=== PATIENT | male | born 1950 | race Caucasian/White ===

== ENCOUNTER → 2018-02-20 | Outpatient (CLI) | payer MEDICARE, OTHER ==
[~2018-02-20] MED LIST: HYDCHL50; METO25ER; ZOLP10
== END ==
LOC: PLD 08:29 → LAB SHORT 08:29
DX: D48.5 Neoplasm of uncertain behavior of skin (principal)
CPT/HCPCS: 88305

== ENCOUNTER → 2019-02-28 | Outpatient (CLI) | payer MEDICARE, OTHER | END | disposition home or self-care (01) | LOC: LAB SHORT 14:54 → PLD 14:54 | DX: D23.39 Other benign neoplasm of skin of other parts of face (principal) | CPT/HCPCS: 88305 ==

== ENCOUNTER → 2019-11-29 | Outpatient (CLI) | payer MEDICARE, OTHER ==
[2019-11-29 13:41] LABS: BASOPHILS ABSOLUTE AUTO 0.05 K/mm3 (0.00-0.23); BASOPHILS PERCENT AUTO 1 % (0-2); EOSINOPHILS ABSOLUTE AUTO 0.18 K/mm3 (0.00-0.68); EOSINOPHILS PERCENT AUTO 4 % (0-6); Hematocrit 45.1 % (37.0-53.0); Hemoglobin 15.6 g/dL (13.5-17.5); IMMATURE GRAN ABSOLUTE AUTO 0.02 K/mm3 (0.00-0.10); IMMATURE GRAN PERCENT AUTO 0 % (0-1); LYMPHOCYTES ABSOLUTE AUTO 1.14 K/mm3 (0.84-5.20); LYMPHOCYTES PERCENT AUTO 23 % (21-46); MONOCYTES ABSOLUTE AUTO 0.47 K/mm3 (0.16-1.47); MONOCYTES PERCENT AUTO 9 % (4-13); Mean Corpuscular HGB 31.8 pg (26.0-34.0); Mean Corpuscular HGB Conc 34.6 g/dL (31.5-36.5); Mean Corpuscular Volume 92 fL (80-100); Mean Platelet Volume 9.7 fL (9.1-12.4); NEUTROPHILS ABSOLUTE AUTO 3.21 K/mm3 (1.96-9.15); NEUTROPHILS PERCENT AUTO 63 % (41-73); Platelet Count 239 K/mm3 (150-400); RDW Coefficient Variation 12.1 % (11.7-14.2); RDW Standard Deviation 41.1 fL (35.1-46.3); White Blood Cell Count 5.07 K/mm3 (4.00-11.30)
[2019-11-29 13:56] LABS: Alanine Aminotransfer (ALT/SGP 28 U/L (12-78); Albumin, Blood 4.2 g/dL (3.4-5.0); Albumin/Globulin Ratio 1.1 (0.8-1.8); Alk Phos 44 U/L (40-126); Anion Gap 9 mmol/L (6-16); Aspartate Aminotrans (AST/SGOT 26 U/L (12-37); Bilirubin, Total 0.6 mg/dL (0.1-1.0); Blood Urea Nitrogen 13 mg/dL (8-24); Bun/Creatinine Ratio 11.9 (12.0-20.0); CO2, Blood 29 mmol/L (21-32); Chloride, Blood 96 mmol/L (98-108); Creatinine, Blood 1.09 mg/dL (0.60-1.20); Globulin, Blood 3.7 g/dL (2.2-4.0); Glomerular Filtration Rate >60 (60-); Glucose, Blood 114 mg/dL (70-99); Potassium, Blood 4.6 mmol/L (3.5-5.5); Sodium, Blood 134 mmol/L (136-145); Total Protein, Blood 7.9 g/dL (6.4-8.2)
== END ==
LOC: LAB EV 13:34 → LAB SHORT 13:34
PROVIDERS: Nurse Practitioner
DX: R42 Dizziness and giddiness (principal)
CPT/HCPCS: 80053; 85025

== ENCOUNTER → 2020-01-14 | Outpatient (CLI) | payer MEDICARE, OTHER | END | disposition home or self-care (01) | LOC: LAB SHORT 13:09 → PLD 13:09 | DX: D48.5 Neoplasm of uncertain behavior of skin (principal) | CPT/HCPCS: 88305 ==

== ENCOUNTER 2020-04-13 10:14 | Day surgery (SDC) | payer MEDICARE, OTHER ==
[~2020-04-13] VITALS: Ht 182.9 cm; Wt 77.6 kg
[~2020-04-13 10:14] MED LIST changes: +Cialis20 MG PO; +HYDCHL12.5 PO; +Halobetasol Pro15 GM TOP; +LIDO700A20 TOP; +METO50ER PO; +Nexium40 MG PO; +OMEP20ER PO; +ZOLP10 PO
[2020-04-13] MEDS ORDERED: Avapro150 MG (10:40)
== END 2020-04-13 12:13 | disposition home or self-care (01) ==
LOC: ORSCSDS 10:14
PROVIDERS: Internal Medicine Gastroenterology
PROC: 0D5P8ZZ Destruction of Rectum, Via Natural or Artificial Opening Endoscopic (ICD-10-PCS; principal; 2020-04-13 11:30)
PROC: 0DBP8ZX Excision of Rectum, Via Natural or Artificial Opening Endoscopic, Diagnostic (ICD-10-PCS; principal; 2020-04-13 11:30)
DX: K92.1 Melena (principal); K63.5 Polyp of colon; K57.30 Diverticulosis of large intestine without perforation or abscess without bleeding; K62.7 Radiation proctitis; K64.8 Other hemorrhoids; Z86.010 Personal history of colon polyps; Z86.19 Personal history of other infectious and parasitic diseases; K21.9 Gastro-esophageal reflux disease without esophagitis; I10 Essential (primary) hypertension; E78.5 Hyperlipidemia, unspecified; Z79.899 Other long term (current) drug therapy
CPT/HCPCS: 88305; J2704; J7120

== ENCOUNTER 2020-08-24 07:51 | Day surgery (SDC) | payer MEDICARE, OTHER ==
[~2020-08-24] VITALS: Ht 182.9 cm; Wt 80.9 kg
[~2020-08-24 07:51] MED LIST changes: +Avapro150 MG
== END 2020-08-24 09:41 | disposition home or self-care (01) ==
LOC: ORSCSDS 07:51
PROVIDERS: Internal Medicine Gastroenterology
PROC: 0DB98ZX Excision of Duodenum, Via Natural or Artificial Opening Endoscopic, Diagnostic (ICD-10-PCS; principal; 2020-08-24 09:15)
PROC: 0DB78ZX Excision of Stomach, Pylorus, Via Natural or Artificial Opening Endoscopic, Diagnostic (ICD-10-PCS; principal; 2020-08-24 09:15)
DX: K21.00 Gastro-esophageal reflux disease with esophagitis, without bleeding (principal); K30 Functional dyspepsia; K20.80 Other esophagitis without bleeding; K29.70 Gastritis, unspecified, without bleeding; K31.7 Polyp of stomach and duodenum; B19.20 Unspecified viral hepatitis C without hepatic coma; I10 Essential (primary) hypertension; Z79.899 Other long term (current) drug therapy
CPT/HCPCS: 88305; 88342; J2704; J7120

== ENCOUNTER → 2022-12-07 | Outpatient (CLI) | payer MEDICARE, OTHER | LOC: PLD 15:43 → LAB SHORT 15:43 | DX: D48.5 Neoplasm of uncertain behavior of skin (principal) | CPT/HCPCS: 88305 ==

== ENCOUNTER → 2023-02-01 | Outpatient (CLI) | payer MEDICARE, OTHER | LOC: PLD 11:42 → LAB SHORT 11:42 | DX: D48.5 Neoplasm of uncertain behavior of skin (principal) | CPT/HCPCS: 88305 ==

== ENCOUNTER → 2023-11-09 | Outpatient (CLI) | payer MEDICARE, OTHER | END | disposition home or self-care (01) | LOC: LAB SHORT 11:58 → LAB 11:58 | DX: R30.0 Dysuria (principal) | CPT/HCPCS: 87086 ==

== ENCOUNTER 2024-06-28 08:36 | Day surgery (SDC) | payer MEDICARE, OTHER ==
[2024-06-28 13:40] LABS: Source, Urine Clean Catch
[2024-06-28 13:50] LABS: Appearance, Urine Clear (Clear); Bilirubin, Urine Neg (Neg); Blood, Urine 1+ (Neg); Color, Urine Yellow (P-Yellow); Glucose Qualitative, Urine Neg (Neg); Ketones, Urine Neg (Neg); Leukocyte Esterase, Urine Neg (Neg); Nitrite, Urine Neg (Neg); Protein, Urine Neg (Neg); Urobilinogen, Urine NORM (Normal); pH, Urine 6.5 (5.0-8.0)
[2024-06-28 14:05] LABS: Bacteria Not Seen /hpf; Squamous Epithelial Cells Not Seen /hpf (Few); White Blood Cells, Urine 0-2 /hpf (0-5)
== END 2024-06-29 03:06 | disposition home or self-care (01) ==
LOC: WOUND 08:36
PROVIDERS: Surgery
DX: N30.40 Irradiation cystitis without hematuria (principal)
CPT/HCPCS: 81001; G0463

== ENCOUNTER 2024-07-10 01:52 | Day surgery (SDC) | payer MEDICARE, OTHER | END 2024-07-10 23:47 | disposition home or self-care (01) | LOC: HBO 01:52 | DX: N30.40 Irradiation cystitis without hematuria (principal) | CPT/HCPCS: G0277 ==

== ENCOUNTER 2024-07-11 00:59 | Day surgery (SDC) | payer MEDICARE, OTHER | END 2024-07-12 23:01 | disposition home or self-care (01) | LOC: HBO 00:59 | DX: N30.40 Irradiation cystitis without hematuria (principal); R30.0 Dysuria | CPT/HCPCS: G0277 ==

== ENCOUNTER 2024-07-12 02:06 | Day surgery (SDC) | payer MEDICARE, OTHER | END 2024-07-12 23:02 | disposition home or self-care (01) | LOC: HBO 02:06 | DX: N30.40 Irradiation cystitis without hematuria (principal) | CPT/HCPCS: G0277 ==

== ENCOUNTER 2024-07-15 02:25 | Day surgery (SDC) | payer MEDICARE, OTHER | END 2024-07-15 23:00 | disposition home or self-care (01) | LOC: HBO 02:25 | DX: N30.40 Irradiation cystitis without hematuria (principal) | CPT/HCPCS: G0277 ==

== ENCOUNTER 2024-07-16 04:07 | Day surgery (SDC) | payer MEDICARE, OTHER | END 2024-07-16 23:22 | disposition home or self-care (01) | LOC: HBO 04:07 | DX: N30.40 Irradiation cystitis without hematuria (principal); R30.0 Dysuria | CPT/HCPCS: G0277 ==

== ENCOUNTER 2024-07-17 01:06 | Day surgery (SDC) | payer MEDICARE, OTHER | END 2024-07-17 23:26 | disposition home or self-care (01) | LOC: HBO 01:06 | DX: N30.40 Irradiation cystitis without hematuria (principal); R30.0 Dysuria | CPT/HCPCS: G0277 ==

== ENCOUNTER 2024-07-18 02:45 | Day surgery (SDC) | payer MEDICARE, OTHER | END 2024-07-18 23:28 | disposition home or self-care (01) | LOC: HBO 02:45 | DX: N30.40 Irradiation cystitis without hematuria (principal); R30.0 Dysuria | CPT/HCPCS: G0277 ==

== ENCOUNTER 2024-07-19 03:08 | Day surgery (SDC) | payer MEDICARE, OTHER | END 2024-07-19 23:47 | disposition home or self-care (01) | LOC: HBO 03:08 | DX: N30.40 Irradiation cystitis without hematuria (principal) | CPT/HCPCS: G0277 ==

== ENCOUNTER 2024-07-22 02:39 | Day surgery (SDC) | payer MEDICARE, OTHER | END 2024-07-22 23:50 | disposition home or self-care (01) | LOC: HBO 02:39 → WOUND 10:59 → HBO 11:02 | DX: N30.40 Irradiation cystitis without hematuria (principal) | CPT/HCPCS: G0277 ==

== ENCOUNTER 2024-07-23 01:18 | Day surgery (SDC) | payer MEDICARE, OTHER | END 2024-07-23 23:00 | disposition home or self-care (01) | LOC: HBO 01:18 | DX: N30.40 Irradiation cystitis without hematuria (principal) | CPT/HCPCS: G0277 ==

== ENCOUNTER 2024-07-24 03:15 | Day surgery (SDC) | payer MEDICARE, OTHER | END 2024-07-24 23:57 | disposition home or self-care (01) | LOC: HBO 03:15 | DX: N30.40 Irradiation cystitis without hematuria (principal); R30.0 Dysuria | CPT/HCPCS: G0277 ==

== ENCOUNTER 2024-07-26 03:14 | Day surgery (SDC) | payer MEDICARE, OTHER | END 2024-07-27 00:03 | disposition home or self-care (01) | LOC: HBO 03:14 | DX: N30.40 Irradiation cystitis without hematuria (principal) | CPT/HCPCS: G0277 ==

== ENCOUNTER 2024-07-29 00:53 | Day surgery (SDC) | payer MEDICARE, OTHER | END 2024-07-30 00:19 | disposition home or self-care (01) | LOC: HBO 00:53 | DX: N30.40 Irradiation cystitis without hematuria (principal) | CPT/HCPCS: G0277 ==

== ENCOUNTER 2024-07-30 01:26 | Day surgery (SDC) | payer MEDICARE, OTHER | END 2024-07-30 23:00 | disposition home or self-care (01) | LOC: HBO 01:26 | DX: N30.40 Irradiation cystitis without hematuria (principal) | CPT/HCPCS: G0277 ==

== ENCOUNTER 2024-07-31 02:59 | Day surgery (SDC) | payer MEDICARE, OTHER | END 2024-07-31 23:00 | disposition home or self-care (01) | LOC: HBO 02:59 | DX: N30.40 Irradiation cystitis without hematuria (principal) | CPT/HCPCS: G0277 ==

== ENCOUNTER 2024-08-01 02:55 | Day surgery (SDC) | payer MEDICARE, OTHER | END 2024-08-01 23:00 | disposition home or self-care (01) | LOC: HBO 02:55 | DX: N30.40 Irradiation cystitis without hematuria (principal) | CPT/HCPCS: G0277 ==

== ENCOUNTER 2024-08-02 03:50 | Day surgery (SDC) | payer MEDICARE, OTHER | END 2024-08-03 03:10 | disposition home or self-care (01) | LOC: HBO 03:50 | DX: N30.40 Irradiation cystitis without hematuria (principal); R30.0 Dysuria | CPT/HCPCS: G0277 ==

== ENCOUNTER 2024-08-05 03:41 | Day surgery (SDC) | payer MEDICARE, OTHER | END 2024-08-05 23:00 | disposition home or self-care (01) | LOC: WOUND 03:41 | DX: N30.40 Irradiation cystitis without hematuria (principal); R30.0 Dysuria | CPT/HCPCS: G0463 ==

== ENCOUNTER 2024-08-05 03:44 | Day surgery (SDC) | payer MEDICARE, OTHER | END 2024-08-05 23:00 | disposition home or self-care (01) | LOC: HBO 03:44 | DX: N30.40 Irradiation cystitis without hematuria (principal); R30.0 Dysuria | CPT/HCPCS: G0277 ==

== ENCOUNTER 2024-08-06 01:48 | Day surgery (SDC) | payer MEDICARE, OTHER | END 2024-08-06 23:00 | disposition home or self-care (01) | LOC: HBO 01:48 | DX: N30.40 Irradiation cystitis without hematuria (principal); R30.0 Dysuria | CPT/HCPCS: G0277 ==

== ENCOUNTER 2024-08-07 03:22 | Day surgery (SDC) | payer MEDICARE, OTHER | END 2024-08-07 23:00 | disposition home or self-care (01) | LOC: HBO 03:22 | DX: N30.40 Irradiation cystitis without hematuria (principal) | CPT/HCPCS: G0277 ==

== ENCOUNTER 2024-08-08 03:17 | Day surgery (SDC) | payer MEDICARE, OTHER | END 2024-08-08 23:31 | disposition home or self-care (01) | LOC: HBO 03:17 | DX: N30.40 Irradiation cystitis without hematuria (principal); R30.0 Dysuria | CPT/HCPCS: G0277 ==

== ENCOUNTER 2024-08-19 02:30 | Day surgery (SDC) | payer MEDICARE, OTHER | END 2024-08-19 23:23 | disposition home or self-care (01) | LOC: HBO 02:30 | DX: N30.40 Irradiation cystitis without hematuria (principal) | CPT/HCPCS: G0277 ==

== ENCOUNTER 2024-08-20 00:59 | Day surgery (SDC) | payer MEDICARE, OTHER | END 2024-08-20 23:31 | disposition home or self-care (01) | LOC: HBO 00:59 | DX: N30.40 Irradiation cystitis without hematuria (principal) | CPT/HCPCS: G0277 ==

== ENCOUNTER 2024-08-21 00:53 | Day surgery (SDC) | payer MEDICARE, OTHER | END 2024-08-21 23:04 | disposition home or self-care (01) | LOC: HBO 00:53 | DX: N30.40 Irradiation cystitis without hematuria (principal) | CPT/HCPCS: G0277 ==

== ENCOUNTER 2024-08-26 00:14 | Day surgery (SDC) | payer MEDICARE, OTHER | END 2024-08-26 23:00 | disposition home or self-care (01) | LOC: WOUND 00:14 | DX: N30.40 Irradiation cystitis without hematuria (principal); I10 Essential (primary) hypertension | CPT/HCPCS: G0463 ==

== ENCOUNTER 2024-08-26 00:15 | Day surgery (SDC) | payer MEDICARE, OTHER | END 2024-08-26 23:00 | disposition home or self-care (01) | LOC: HBO 00:15 | DX: N30.40 Irradiation cystitis without hematuria (principal); I10 Essential (primary) hypertension | CPT/HCPCS: G0277; G0463 ==

== ENCOUNTER 2024-08-27 04:33 | Day surgery (SDC) | payer MEDICARE, OTHER | END 2024-08-27 23:00 | disposition home or self-care (01) | LOC: HBO 04:33 | DX: N30.40 Irradiation cystitis without hematuria (principal) | CPT/HCPCS: G0277 ==

== ENCOUNTER 2024-08-28 01:44 | Day surgery (SDC) | payer MEDICARE, OTHER | END 2024-08-28 23:00 | disposition home or self-care (01) | LOC: HBO 01:44 | DX: N30.40 Irradiation cystitis without hematuria (principal) | CPT/HCPCS: G0277 ==

== ENCOUNTER 2024-08-29 10:09 | Day surgery (SDC) | payer MEDICARE, OTHER | END 2024-08-29 23:00 | disposition home or self-care (01) | LOC: HBO 10:09 | DX: N30.40 Irradiation cystitis without hematuria (principal) | CPT/HCPCS: G0277 ==

== ENCOUNTER 2024-08-30 05:51 | Day surgery (SDC) | payer MEDICARE, OTHER | END 2024-08-30 23:00 | disposition home or self-care (01) | LOC: HBO 05:51 | DX: N30.40 Irradiation cystitis without hematuria (principal) | CPT/HCPCS: G0277 ==

== ENCOUNTER 2024-09-02 04:46 | Day surgery (SDC) | payer MEDICARE, OTHER | END 2024-09-02 23:00 | disposition home or self-care (01) | LOC: HBO 04:46 | DX: N30.40 Irradiation cystitis without hematuria (principal) | CPT/HCPCS: G0277 ==

== ENCOUNTER 2024-09-03 01:37 | Day surgery (SDC) | payer MEDICARE, OTHER | END 2024-09-03 23:00 | disposition home or self-care (01) | LOC: HBO 01:37 | DX: N30.40 Irradiation cystitis without hematuria (principal); R30.0 Dysuria | CPT/HCPCS: G0277 ==

== ENCOUNTER 2024-09-04 03:43 | Day surgery (SDC) | payer MEDICARE, OTHER | END 2024-09-04 23:00 | disposition home or self-care (01) | LOC: HBO 03:43 | DX: N30.40 Irradiation cystitis without hematuria (principal) | CPT/HCPCS: G0277 ==

== ENCOUNTER 2024-09-05 01:31 | Day surgery (SDC) | payer MEDICARE, OTHER | END 2024-09-05 23:00 | disposition home or self-care (01) | LOC: HBO 01:31 | DX: N30.40 Irradiation cystitis without hematuria (principal) | CPT/HCPCS: G0277 ==

== ENCOUNTER 2024-09-06 03:28 | Day surgery (SDC) | payer MEDICARE, OTHER | END 2024-09-06 23:00 | disposition home or self-care (01) | LOC: HBO 03:28 | DX: N30.40 Irradiation cystitis without hematuria (principal) | CPT/HCPCS: G0277 ==

== ENCOUNTER 2024-09-09 02:59 | Day surgery (SDC) | payer MEDICARE, OTHER | END 2024-09-09 23:00 | disposition home or self-care (01) | LOC: HBO 02:59 | DX: N30.40 Irradiation cystitis without hematuria (principal) | CPT/HCPCS: G0277 ==

== ENCOUNTER 2024-09-10 04:10 | Day surgery (SDC) | payer MEDICARE, OTHER | END 2024-09-10 23:00 | disposition home or self-care (01) | LOC: HBO 04:10 | DX: N30.40 Irradiation cystitis without hematuria (principal) | CPT/HCPCS: G0277 ==

== ENCOUNTER 2024-09-11 05:12 | Day surgery (SDC) | payer MEDICARE, OTHER | END 2024-09-11 23:00 | disposition home or self-care (01) | LOC: HBO 05:12 | DX: N30.40 Irradiation cystitis without hematuria (principal) | CPT/HCPCS: G0277 ==

== ENCOUNTER 2024-09-12 04:35 | Day surgery (SDC) | payer MEDICARE, OTHER | END 2024-09-12 23:00 | disposition home or self-care (01) | LOC: HBO 04:35 | PROC: 5A05121 Extracorporeal Hyperbaric Oxygenation, Intermittent (ICD-10-PCS; principal; 2024-09-12) | DX: N30.40 Irradiation cystitis without hematuria (principal) | CPT/HCPCS: G0277 ==

== ENCOUNTER 2024-09-16 04:33 | Day surgery (SDC) | payer MEDICARE, OTHER | END 2024-09-18 23:00 | disposition home or self-care (01) | LOC: HBO 04:33 | DX: N30.40 Irradiation cystitis without hematuria (principal) | CPT/HCPCS: G0277 ==

== ENCOUNTER 2025-05-15 12:26 | Day surgery (SDC) | payer MEDICARE, OTHER ==
[~2025-05-15] VITALS: Ht 182.9 cm; Wt 71.8 kg
[~2025-05-15 12:26] MED LIST changes: +ALLER-TEC PO; +FINA5 PO; +FLUT.05NI
[2025-05-15] MEDS ORDERED: Zovirax Cream 5%2 GM (13:24)
[2025-05-15 16:09] VITALS: BP 135/80
== END 2025-05-15 16:13 | disposition home or self-care (01) ==
LOC: ORSCSDS 12:26
PROVIDERS: Internal Medicine Gastroenterology
PROC: 0DBL8ZX Excision of Transverse Colon, Via Natural or Artificial Opening Endoscopic, Diagnostic (ICD-10-PCS; principal; 2025-05-15 14:00)
PROC: 0DB98ZX Excision of Duodenum, Via Natural or Artificial Opening Endoscopic, Diagnostic (ICD-10-PCS; principal; 2025-05-15 14:00)
PROC: 0DBN8ZX Excision of Sigmoid Colon, Via Natural or Artificial Opening Endoscopic, Diagnostic (ICD-10-PCS; principal; 2025-05-15 14:00)
PROC: 0DB78ZX Excision of Stomach, Pylorus, Via Natural or Artificial Opening Endoscopic, Diagnostic (ICD-10-PCS; principal; 2025-05-15 14:00)
DX: R14.0 Abdominal distension (gaseous) (principal); Z86.0101 Personal history of adenomatous and serrated colon polyps; K21.9 Gastro-esophageal reflux disease without esophagitis; D12.3 Benign neoplasm of transverse colon; K63.5 Polyp of colon; K62.7 Radiation proctitis; K64.4 Residual hemorrhoidal skin tags; Z85.46 Personal history of malignant neoplasm of prostate; I10 Essential (primary) hypertension; Z79.899 Other long term (current) drug therapy
CPT/HCPCS: 88305; 88342; J2704; J7120